=== PATIENT | male | born 1990 | race Two or more races ===

== ENCOUNTER 2024-03-30 11:48 | Emergency (ER) | payer OTHER ==
[~2024-03-30] VITALS: Ht 175.3 cm; Wt 81.6 kg
[2024-03-30 14:56] LABS: HEMATOCRIT 46.4 % (39.0-48.0); HEMOGLOBIN 16.1 g/dL (13-16.00); MEAN CORPUSCULAR HEMOGLOBIN 30.1 pg (27.00-32.0); MEAN CORPUSCULAR HGB CONC 34.7 g/dl (32.0-36.0); PLATELET COUNT 249 K/uL (150-450); RED BLOOD COUNT 5.34 M/uL (4.00-6.00); RED CELL DISTRIBUTION WIDTH 13.3 % (11.5-14.5)
[2024-03-30 15:28] LABS: CALCIUM 9.7 mg/dL (8.5-10.1); CREATININE SERUM 0.83 mg/dL (0.70-1.30); GFR 108.06; POTASSIUM 4.05 mEq/L (3.5-5.1)
== END 2024-03-30 16:03 | disposition home or self-care (01) ==
LOC: ER 11:50
PROVIDERS: Emergency Medicine
DX: M94.0 Chondrocostal junction syndrome [Tietze] (principal); R07.89 Other chest pain